=== PATIENT | female | born 1940 | race Hispanic/Latino ===

== ENCOUNTER 2017-02-17 16:07 | Inpatient (IN) | payer MEDICARE, BC ==
[2017-02-17 16:18] VITALS: BMI 38.9
[2017-02-17] MEDS ORDERED: Pantoprazole 80 MG in Sodium Chloride 0.9% 100 ML IV STA (16:36)
[2017-02-17 17:05] LABS: ADD MANUAL DIFF? NO
[2017-02-17 17:09] LABS: BASO # 0.02 K/mm3 (0.0-2.0); BASO % 0.3 % (0.0-3.0); EOS # 0.1 (0.0-0.7); EOS % 1.6 % (1.5-5.0); GRAN # 5.53 (1.4-6.5); GRAN % 71.7 % (50.0-68.0); HEMATOCRIT 31.1 % (36.0-48.0); LYMPH # 1.4 (1.2-3.4); LYMPH % 18.6 % (22.0-35.0); MEAN CORPUSCULAR HEMOGLOBIN 29.3 pg (25.0-35.0); MEAN CORPUSCULAR HGB CONC 31.8 g/dl (31.0-37.0); MEAN PLATELET VOLUME 10.3 fl (7.0-11.0); MONO # 0.6 (0.1-0.6); MONO % 7.8 % (1.0-6.0); PLATELET COUNT 304 10^3/uL (120.0-450.0); RED CELL DISTRIBUTION WIDTH 14.3 % (11.5-14.5); WHITE BLOOD COUNT 7.7 10^3/ul (4.5-11.0)
--- NOTE | 2017-02-17 17:16 | ED PDOC ---
Arrival/HPI - General Chief Complaint: Abnormal Labs Time Seen by Provider: 02/17/17 16:17 Historian: Patient - History of Present Illness Narrative History of Present Illness (Text): 02/17/17 17:13 77 year old female whose past medical history includes atrial fibrillation, diabetes, hypertension, hypercholeterolemia, GI bleed, and anemia sent by GI Dr. Gleason for low hemoglobin. Patient was admitted in december for GI bleed and followed up with Dr. Gleason. Patient had bloodwork done 1 week ago, which showed hemoglobin of 7. Dr. Gleason called to the ER for handoff stating that at his office today patient had shortness of breathe and was noted to have a low blood pressure. Patient reports intermittent shortness of breath and intermittent lightheadedness/dizziness. PMD: Dr. Roy Time/Duration: > week Symptom Onset: Gradual Symptom Course: Intermittent Modifying Factors (Text): None Associated Symptoms (Text): None Past Medical History - Provider Review Nursing Documentation Reviewed: Yes - Cardiac Hx Hypertension: Yes Other/Comment: cardiac stent - Endocrine/Metabolic Hx Diabetes Mellitus Type 2: Yes - Hematological/Oncological Hx Cancer: Yes (cervical and vulva) - Genitourinary/Gynecological Hx Cervical Cancer: Yes - Psychiatric Hx Substance Use: No - Surgical History Hx Cataract Extraction: Yes Hx Coronary Stent: Yes Hx Hysterectomy: Yes Family/Social History - Physician Review Nursing Documentation Reviewed: Yes Family/Social History: Unknown Family HX Smoking Status: Unknown If Ever Smoked Hx Alcohol Use: No Hx Substance Use: No Allergies/Home Meds Allergies/Adverse Reactions: Allergies No Known Allergies Allergy (Unverified 02/17/17 16:36) Review of Systems - Physician Review All systems were reviewed & negative as marked: Yes - Review of Systems Respiratory: SOB (intermittent) Cardiovascular: absent: Chest Pain Gastrointestinal: absent: Abdominal Pain Neurological: Dizziness (intermittent) Physical Exam Vital Signs Reviewed: Yes Vital Signs Temp Pulse Resp BP Pulse Ox 02/17/17 18:05 73 18 106/77 96 02/17/17 16:17 98.0 F 93 H 18 118/45 L 96 Temperature: Afebrile Blood Pressure: Normal Pulse: Regular Respiratory Rate: Normal Appearance: Positive for: Well-Appearing, Non-Toxic, Comfortable Pain Distress: None Mental Status: Positive for: Alert and Oriented X 3 - Systems Exam Head: Present: Atraumatic, Normocephalic Pupils: Present: PERRL Extroacular Muscles: Present: EOMI Conjunctiva: Present: Other (Pale conjunctiva) Mouth: Present: Moist Mucous Membranes Neck: Present: Normal Range of Motion Respiratory/Chest: Present: Clear to Auscultation, Good Air Exchange. No: Respiratory Distress, Accessory Muscle Use Cardiovascular: Present: Regular Rate and Rhythm, Normal S1, S2. No: Murmurs Abdomen: Present: Normal Bowel Sounds. No: Tenderness, Distention, Peritoneal Signs Back: Present: Normal Inspection Upper Extremity: Present: Normal Inspection. No: Cyanosis, Edema Lower Extremity: Present: Edema (Trace) Neurological: Present: GCS=15, CN II-XII Intact, Speech Normal Skin: Present: Warm, Dry, Pale. No: Rashes Psychiatric: Present: Alert, Oriented x 3, Normal Insight, Normal Concentration Medical Decision Making ED Course and Treatment: Impression: 77 year old female whose past medical history includes atrial fibrillation, diabetes, hypertension, hypercholeterolemia, GI bleed, and anemia sent by GI Dr. Gleason for low hemoglobin. Differential Diagnosis included but are not limited to: Shortness of Breathe, Near Syncope r/o Anemia secondary to GI bleed Plan: -- EKG, Chest X-ray -- Protonix -- Labs -- Reassess and disposition Progress Notes: 02/17/17 18:10 Patient said she had rectal bleeding 2 weeks ago and not today. She'd rather not do the rectal exam for guaic test. I explained to her the importance and she still did not want it. PMD is Dr. Roy who admits to the hospitalist. I discussed case with Dr. Murillo who agreed to telemetry observation secondary to hypotensive episode and near syncope with gi bleed. - Lab Interpretations Lab Results: 02/17/17 17:04 02/17/17 17:04 Lab Results 02/17/17 17:04: Sodium 136, Potassium 4.6, Chloride 107, Carbon Dioxide 19 L, Anion Gap 15, BUN 14, Creatinine 1.2, Est GFR ( Amer) 53, Est GFR (Non- Af Amer) 43, Random Glucose 122 H, Calcium 9.1, Total Bilirubin 0.5, AST 22, ALT 35, Alkaline Phosphatase 50, Lactate Dehydrogenase 429, Total Creatine Kinase 56, Troponin I < 0.01, Total Protein 6.4, Albumin 3.3, Globulin 3.1, Albumin/Globulin Ratio 1.1, Amylase 46, Lipase 30 02/17/17 17:04: WBC 7.7, RBC 3.38 L, Hgb 9.9 L, Hct 31.1 L, MCV 92.0, MCH 29.3, MCHC 31.8, RDW 14.3, Plt Count 304, MPV 10.3, Gran % 71.7 H, Lymph % (Auto) 18.6 L, [place] % (Auto) 7.8 H, Eos % (Auto) 1.6, Baso % (Auto) 0.3, Gran # 5.53, Lymph # 1.4, [place] # 0.6, Eos # 0.1, Baso # 0.02 02/17/17 16:55: Blood Type Pending, Antibody Screen Pending, BBK History Checked No verified bt Interpretation: Abnormal lab values (low hgb) - RAD Interpretation Radiology Orders: 02/17/17 16:36 CHEST PORTABLE [RAD] Stat - EKG Interpretation EKG Interpretation (Text): EKG shows atrial fibrillation at 93 BPM, otherwise normal, with no prior for comparison. Interpreted by me. Interpreted by ED Physician: Yes Type: 12 lead EKG - Medication Orders Current Medication Orders: Pantoprazole Sodium (Protonix 40mg Ivpb) 40 mg in 100 mls @ 20 mls/hr IVPB .Q5H COMPA Stop: 02/18/17 02:59 - Scribe Statement The provider has reviewed the documentation as recorded by the John Villalta Provider Scribe Attestation: All medical record entries made by the John were at my direction and personally dictated by me. I have reviewed the chart and agree that the record accurately reflects my personal performance of the history, physical exam, medical decision making, and the department course for this patient. I have also personally directed, reviewed, and agree with the discharge instructions and disposition. Disposition/Present on Arrival - Present on Arrival Any Indicators Present on Arrival: No History of DVT/PE: No History of Uncontrolled Diabetes: No Urinary Catheter: No History of Decub. Ulcer: No History Surgical Site Infection Following: None - Disposition Have Diagnosis and Disposition been Completed?: Yes Diagnosis: Near syncope, Shortness of breath, GI bleed Disposition Time: 18:12 Patient Plan: Observation Condition: FAIR Referrals: Santosh Roy MD [Primary Care Provider] - Follow up with primary
[2017-02-17 17:19] LABS: ALB/GLOB RATIO 1.1 (1.1-1.8); ALKALINE PHOSPHATASE 50 U/L (38-133); ALT/SGPT 35 U/L (7-56); AMYLASE 46 U/L (35-125); AST/SGOT 22 U/L (15-39); BILIRUBIN,TOTAL 0.5 mg/dL (0.2-1.3); BLOOD UREA NITROGEN 14 mg/dL (7-21); CALCIUM 9.1 mg/dL (8.4-10.5); CARBON DIOXIDE 19 mmol/L (21-33); CHLORIDE 107 mmol/L (98-107); GFR AFRICAN-AMERICAN 53; GLUCOSE,RANDOM 122 mg/dL (70-110); LIPASE 30 U/L (23-300); POTASSIUM 4.6 mmol/L (3.6-5.0); SODIUM 136 mmol/L (132-148); TOTAL PROTEIN 6.4 g/dL (5.8-8.3)
[2017-02-17] MEDS: PANTOPRAZOLE IVPB SCH ×2 (17:30→23:24)
--- NOTE | 2017-02-17 17:35 | RAD ---
HISTORY: Shortness of breath. Semi upright study 17:04. COMPARISON: Catheterization set FINDINGS: LUNGS: No active pulmonary disease. PLEURA: No significant pleural effusion identified, no pneumothorax apparent. CARDIOVASCULAR: No radiographic findings to suggest acute or significant cardiovascular disease. OSSEOUS STRUCTURES: No significant abnormalities. VISUALIZED UPPER ABDOMEN: Normal. OTHER FINDINGS: None. IMPRESSION: No active disease.
[2017-02-17 17:41] LABS: TROPONIN I < 0.01 ng/mL
[2017-02-17 19:00] LABS: INR 1.26 (0.93-1.08); PARTIAL THROMBOPLASTIN TIME 37.3 Seconds (23.7-30.8)
--- NOTE | 2017-02-17 21:37 | CARD ---
APPROVED REPORT EKG Measurement Heart [id number] <Conclusion> Sinus rhythm with frequent APCs. some are nonconducted Low voltage QRS Incomplete right bundle branch block Abnormal ECG
[2017-02-18 06:56] LABS: URINE BILIRUBIN NEGATIVE (NEGATIVE); URINE BLOOD NEGATIVE (NEGATIVE); URINE GLUCOSE (UA) NEGATIVE (NEGATIVE); URINE KETONE NEGATIVE (NEGATIVE); URINE LEUKOCYTE ESTERASE SMALL Leu/uL (NEGATIVE); URINE PROTEIN NEGATIVE mg/dL (<30 mg/dL); URINE UROBILINOGEN 0.2 E.U./dL (<1 E.U./dL)
[2017-02-18 06:59] LABS: URINE APPEARANCE SL CLOUDY (CLEAR); URINE COLOR YELLOW (YELLOW)
[2017-02-18 07:29] LABS: URINE BACTERIA FEW (NEG); URINE RBC NEGATIVE /hpf (0-2)
[2017-02-18 09:22] LABS: ADD MANUAL DIFF? NO
[2017-02-18 09:32] LABS: BASO # 0.01 K/mm3 (0.0-2.0); BASO % 0.1 % (0.0-3.0); EOS # 0.4 (0.0-0.7); EOS % 4.6 % (1.5-5.0); GRAN % 59.4 % (50.0-68.0); HEMATOCRIT 24.9 % (36.0-48.0); LYMPH # 2.2 (1.2-3.4); LYMPH % 28.8 % (22.0-35.0); MEAN CELL VOLUME 90.2 fL (80.0-105.0); MEAN CORPUSCULAR HEMOGLOBIN 27.5 pg (25.0-35.0); MEAN CORPUSCULAR HGB CONC 30.5 g/dl (31.0-37.0); MEAN PLATELET VOLUME 9.6 fl (7.0-11.0); MONO # 0.6 (0.1-0.6); MONO % 7.1 % (1.0-6.0); PLATELET COUNT 437 10^3/uL (120.0-450.0); RED CELL DISTRIBUTION WIDTH 15.1 % (11.5-14.5); WHITE BLOOD COUNT 7.8 10^3/ul (4.5-11.0)
[2017-02-18 09:35] LABS: ALB/GLOB RATIO 1.1 (1.1-1.8); BILIRUBIN,TOTAL 0.5 mg/dL (0.2-1.3); POTASSIUM 4.5 mmol/L (3.6-5.0); TOTAL PROTEIN 6.5 g/dL (5.8-8.3)
[2017-02-18] MEDS: Albuterol-Ipratrop 3 mg / 0.5 (3 ml) UD IH SCH ×2 (11:18→19:44)
--- NOTE | 2017-02-18 11:31 | HP ---
HISTORY OF PRESENT ILLNESS: The patient is a 77-year-old woman with a past medical history of hypertension, hyperlipidemia, CAD s/p PCI with stent placement and atrial fibrillation (on Pradaxa) who presented to [facility] Emergency Department from her hogshead roller's office (Dr. Gleason) for evaluation of a 2-week history of malaise, lethargy and intermittent dizziness. The patient states that in December 2016 she developed a gradual onset of diarrhea which she described as multiple episodes of loose stools per day. She sought medical attention with her primary care physician (Dr. Roy) and reportedly laboratory studies demonstrated anemia with a hemoglobin of 7. The patient was advised to follow up with the airfield manager and a hogshead roller and was also prescribed Feosol 325 mg p.o. t.i.d. to which she was noncompliant. After her initial evaluation with Dr. Gleason the patient was advised on dietary changes but reported no improvement in her diarrhea initially however by the time of her follow-up with Dr. Gleason she reported decreased frequency of stools and stated that her stools were also more formed in nature. At her visit with Dr. Gleason, however, she was noted to be hypotensive in the office and, as such, was advised to present to the Emergency Department for further evaluation. Upon arrival to the ED, she was noted to be afebrile and hemodynamically stable, and routine laboratory studies demonstrated a hemoglobin of 9.9. Given her history of GI bleed and duration of symptoms, the patient was admitted to the telemetry [place] for observation and for continued management. This morning, the patient states she feels okay and denies any complaints. PAST MEDICAL HISTORY: As per HPI. Also COPD, hypothyroidism, type 2 diabetes mellitus and cervical cancer. PAST SURGICAL HISTORY: As per HPI. Also history of hysterectomy secondary to cervical cancer and bilateral cataract removal. ALLERGIES: No known drug allergies. MEDICATIONS: Stiolto 2 mcg inhaled daily, Xanax 0.25 mg p.o. b.i.d., aspirin 81 mg p.o. daily, Pradaxa 150 mg p.o. b.i.d., Benazepril 40 mg p.o. daily, Trulicity 1.5 mg subcutaneous weekly, diltiazem 30 mg p.o. t.i.d., ergocalciferol 50,000 units p.o. q. weekly, Pepcid 40 mg p.o. daily, Synthroid 25 mcg p.o. daily, Feosol 325 mg p.o. t.i.d., simvastatin 20 mg p.o. daily, metformin 500 mg p.o. b.i.d., Ventolin HFA 2 puffs q. 4-6 hours p.r.n. dyspnea or wheeze. FAMILY HISTORY: Significant for hypertension and laryngeal cancer in her father , and diabetes, emphysema, and history of NC in her mother. SOCIAL HISTORY: The patient reports social alcohol use and a former 55-pack- year smoking history but quit 5 years ago. She denies illicit drug abuse. REVIEW OF SYSTEMS: A 14 point review of systems is negative except as per HPI. PHYSICAL EXAMINATION: VITAL SIGNS: Temperature 97.4, pulse 74, blood pressure 108/49, respiratory rate 20, oxygen saturation 98% on room air. GENERAL: No apparent distress. HEENT: PERRL, EOMI, no scleral icterus. Mild conjunctival pallor is noted. NECK: No JVD, no bruits. LUNGS: Clear to auscultation. CARDIOVASCULAR: Irregularly irregular. Normal S1 and S2. No murmurs. ABDOMEN: Normoactive bowel sounds, soft, nontender, nondistended. EXTREMITIES: No edema. NEUROLOGIC: Awake, alert and oriented x 3. No focal motor deficits. LABORATORY DATA: Laboratory studies on admission demonstrated WBC of 7.7 with 72% neutrophils, hemoglobin 9.9, hematocrit 31, platelets 304. Chemistry is unremarkable. Laboratory studies from this morning are pending. IMAGING STUDIES: Chest x-ray demonstrates no active disease. ASSESSMENT: The patient is a 77-year-old woman with multiple medical comorbidities including history of atrial fibrillation (on Pradaxa) and history of gastrointestinal bleed who presented to [facility] Emergency Department from her hogshead roller's office for evaluation of a 2-week history of loose stools and malaise, and who was admitted for continued management of symptomatic anemia. PLAN: 1. Iron deficiency anemia, symptomatic. Laboratory studies on admission demonstrate a hemoglobin of 9.9 however the repeat morning labs demonstrated a hemoglobin of 7.6. Will transfuse 2 units of PRBCs. Will resume Feosol [address] Gleason of gastroenterology has been consulted for further evaluation and for possible EGD versus colonoscopy for further evaluation of anemia. Continue to monitor CBC daily. 2. Atrial fibrillation. The patient remains rate controlled. Continue with diltiazem 30 mg p.o. t.i.d. Will hold aspirin and Pradaxa given patient's symptomatic anemia and concern for possible GI bleed. 3. Coronary artery disease status post percutaneous coronary intervention with stent placement. As above, will hold aspirin given concern for possible GI bleed. The patient is on simvastatin on an outpatient basis; however, this is not on formulary, thus will start Lipitor 20 mg p.o. daily. 4. Hypertension. The patient with borderline low blood pressure this morning. She is on Benazepril 40 mg p.o. daily at home; however, will hold antihypertensives given tenuous hemodynamics. Will continue to monitor blood pressure and resume home medications as tolerated. 5. Hypothyroidism. Continue with Synthroid 25 mcg p.o. daily. 6. Hyperlipidemia. Continue with Lipitor 20 mg p.o. daily. 7. Chronic obstructive pulmonary disease. Continue with DuoNeb q. 4-6 hours p.r.n. dyspnea or wheeze. 8. Type 2 diabetes mellitus. Continue with metformin 500 mg p.o. b.i.d. Continue to monitor fingersticks q.a.c. and at bedtime. 9. Prophylaxis. Continue with Protonix 40 mg IV daily for GI prophylaxis. DVT prophylaxis not indicated as the patient is ambulatory and also presented with possible gastrointestinal bleed. CODE STATUS: Full code. Flex Longo MD cc: [id number] TT: 02/18/2017 11:31:03 pallavi PIERSON
[2017-02-18] MEDS ORDERED: Propofol 10 mg/ml Inj (20 ML) ONE (11:35)
[2017-02-18] MEDS ORDERED: Phenylephrine 10 mg/ml Inj ONE (11:35)
[2017-02-18] MEDS ORDERED: ePHEDrine 50 mg/ml Inj ONE (11:36)
[2017-02-18] MEDS ORDERED: Albuterol HFA 90 mcg/actuation (8 g) ONE (12:13)
[2017-02-18 13:16] VITALS: O2SAT 100
[2017-02-18] MEDS ORDERED: Lactated Ringer's 1,000 ML IV SCH (13:16)
--- NOTE | 2017-02-18 13:54 | CON ---
DATE: 02/18/2017 REQUESTING PHYSICIAN: Dr. Flex Longo REASON FOR CONSULTATION: I have been asked to see this 77-year-old female with multiple comorbiditie s including coronary artery disease, status post coronary artery stent placement, recently diagnosed atrial fibrillation, diabetes mellitus, obesity, chronic obstructive pulmonary disease, hypothyroidis m, cervical cancer, who I sent to the hospital yesterday from my office for complaints of weakness an d dizziness. The patient had blood work approximately 1 week ago, which revealed a hemoglobin of 7.7 . This was markedly different from a CBC about 2-1/2 months ago, at which point her hemoglobin was 1 4. The patient complained of weakness, lightheadedness, dizziness and feeling faint. The patient al so had rectal bleeding intermittently several weeks ago, which resolved. The rectal bleeding was jolynn cribed as being intermittent. The patient also has had diarrhea in the past, which appeared to impro ve with dietary changes of a low fat, lactose free diet. The patient was also noted to be hypotensiv e in my office with a blood pressure of 90/70 and was deemed to be extremely pale and thus sent to [facility] Emergency Room. PAST MEDICAL HISTORY: As above. Again, she has a history of atrial fibrillation on Pradaxa, diabete s mellitus, COPD, hypothyroidism, cervical cancer. PAST SURGICAL HISTORY: Notable for hysterectomy. SOCIAL HISTORY: She denies recent cigarette use. She used to smoke for over 50 years, but quit 5 ye ars ago. She consumes alcohol on a social basis. FAMILY HISTORY: Noncontributory. REVIEW OF SYSTEMS: A 14-point is notable for diarrhea, rectal bleeding, lightheadedness, dizziness a nd generalized weakness. PHYSICAL EXAMINATION: GENERAL: Obese female, lying in bed, no acute distress. VITAL SIGNS: Reveal temperature of 98, blood pressure 113/55, heart rate of 88. HEENT: Revealed sclerae to be white, conjunctivae extremely pale. NECK: Supple. CHEST: Reveals lungs to be clear. HEART: Reveals an irregularly irregular rate. ABDOMEN: Obese, soft, nontender. EXTREMITIES: Show no edema. LABORATORY DATA: From this morning reveal hemoglobin down to 7.6, which is consistent with the hemog lobin from last week of 7.7. The hemoglobin of 9.9 from the Emergency Room, I feel was an error. emistries reveal blood sugar of 122. AST, ALT, alk phos were all normal. IMPRESSION: A 77-year-old female with coronary artery disease, status post coronary artery stent derrell cement years ago, atrial fibrillation on Pradaxa and aspirin, anemia, history of gastrointestinal ble ed over the last several weeks with a history of diarrhea, which has improved with dietary changes. RECOMMENDATIONS: 1. Transfuse packed red blood cells to hematocrit of 30%. 2. Will schedule the patient for an upper endoscopy this morning. 3. Continue PPI. Larry Gleason MD cc: [id number] TT: 02/18/2017 13:53:48 Confirmation # [id number] Dictation # [id number]
--- NOTE | 2017-02-18 17:25 | CP.PCM.PN ---
Subjective - Date & Time of Evaluation Date of Evaluation: 02/18/17 Time of Evaluation: 17:15 - Subjective Subjective: Code star note 77 year old female whose past medical history includes atrial fibrillation, diabetes, hypertension, hypercholesterolemia, GI bleed, and anemia, fell today while being assisted in toilet. Pt was in between 2 PRBC transfusions, got assisted to toilet, and after urination, adjusted position for stooling, and slipped and fell on long pant leg, and fell onto left hip. Pt denies pain. Vitals minutes afterwards fall is 92/48, 89 HR and 95% Osat. Objective - Vital Signs/Intake and Output Vital Signs (last 24 hours): Temp Pulse Resp BP Pulse Ox 97.9 F 76 20 90/60 L 100 02/18/17 13:40 02/18/17 14:49 02/18/17 13:40 02/18/17 14:49 02/18/17 13:40 Intake and Output: 02/18/17 02/18/17 06:59 18:59 Intake Total 580 665 Output Total 400 1 Balance 180 664 - Medications Medications: Current Medications Albuterol/Ipratropium (Duoneb 3 Mg/0.5 Mg (3 Ml) Ud) 3 ml IH [id number] [facility] Last Admin: 02/18/17 11:18 Dose: 3 ml Atorvastatin Calcium (Lipitor) 20 mg PO DIN [facility] Diltiazem HCl (Cardizem) 30 mg PO TID [facility] Last Admin: 02/18/17 14:49 Dose: 30 mg Ferrous Sulfate (Feosol) 324 mg PO TID [facility] Last Admin: 02/18/17 14:46 Dose: 324 mg Lactated Ringer's (Lactated Ringer's) 1,000 mls @ 75 mls/hr IV .[id number] [facility] Last Admin: 02/18/17 14:45 Dose: 75 mls/hr Levothyroxine Sodium (Synthroid) 25 mcg PO ACB [facility] Metformin HCl (Glucophage) 500 mg PO BID [facility] Last Admin: 02/18/17 12:35 Dose: Not Given Pantoprazole Sodium (Protonix Inj) 40 mg IVP DAILY [facility] Last Admin: 02/18/17 14:45 Dose: Not Given - Labs Labs: 02/18/17 09:15 02/18/17 09:15 PT 13.6 Seconds (9.9-11.8) H 02/17/17 18:44 INR 1.26 (0.93-1.08) H 02/17/17 18:44 APTT 37.3 Seconds (23.7-30.8) H 02/17/17 18:44 - Constitutional Appears: Non-toxic, No Acute Distress - Eye Exam Eye Exam: EOMI, Normal appearance - Respiratory Exam Respiratory Exam: Clear to Ausculation Bilateral, NORMAL BREATHING PATTERN - Cardiovascular Exam Cardiovascular Exam: +S1, +S2. absent: Bradycardia - GI/Abdominal Exam GI & Abdominal Exam: Soft. absent: Tenderness - Exam Additional comments: equal active range of motion of both lower extremities - Skin Skin Exam: Intact, Normal Color Assessment and Plan - Assessment and Plan (Free Text) Plan: 77 year old female whose past medical history includes atrial fibrillation, diabetes, hypertension, hypercholeterolemia, GI bleed, and anemia, slipped and fell on left hip from crouching position over toilet. Pt denies pain and vitals remain relatively unchanged from before fall. Vitals after fall: 92/48, 89 HR and 95% Osat. Last BP and HR before fall, 91/50, 72 HR. Physical exam has preserved active range of motion of b/l lower extremities. Plan: No action
[2017-02-18 18:31] LABS: FOLATE 9.2 ng/mL
[2017-02-18 20:29] VITALS: RESP 18
[2017-02-18 22:56] VITALS: TEMP 98.7
[2017-02-19] MEDS: Albuterol-Ipratrop 3 mg / 0.5 (3 ml) UD IH SCH ×4 (01:27→11:53)
[2017-02-19] MEDS ORDERED: Levothyroxine 25 MCG TAB PO SCH (07:30)
[2017-02-19 07:44] LABS: ADD MANUAL DIFF? NO
[2017-02-19 08:04] LABS: BASO # 0.01 K/mm3 (0.0-2.0); BASO % 0.1 % (0.0-3.0); EOS # 0.4 (0.0-0.7); EOS % 4.5 % (1.5-5.0); GRAN # 4.72 (1.4-6.5); HEMATOCRIT 27.8 % (36.0-48.0); LYMPH # 2.1 (1.2-3.4); LYMPH % 27.2 % (22.0-35.0); MEAN CELL VOLUME 87.1 fL (80.0-105.0); MEAN CORPUSCULAR HEMOGLOBIN 27.6 pg (25.0-35.0); MEAN CORPUSCULAR HGB CONC 31.7 g/dl (31.0-37.0); MEAN PLATELET VOLUME 9.7 fl (7.0-11.0); MONO # 0.6 (0.1-0.6); MONO % 7.2 % (1.0-6.0); PLATELET COUNT 356 10^3/uL (120.0-450.0); WHITE BLOOD COUNT 7.8 10^3/ul (4.5-11.0)
[2017-02-19 08:06] LABS: BILIRUBIN,TOTAL 0.6 mg/dL (0.2-1.3); CALCIUM 8.7 mg/dL (8.4-10.5); POTASSIUM 4.5 mmol/L (3.6-5.0); TOTAL PROTEIN 5.7 g/dL (5.8-8.3)
--- NOTE | 2017-02-19 08:43 | PN ---
DATE: 02/19/2017 SUBJECTIVE: The patient seen and examined at bedside on the telemetry [place]. No acute events overnight. She remains afebrile and hemodynamically stable. The patient is status post transfusion of 2 units of PRBCs secondary to presentation with symptomatic anemia with a hemoglobin of 7.6. This morning she states she feels well, offers no complaints and is looking forward to going home. Of note, the patient also underwent EGD yesterday, which demonstrated no active bleed and per my discussion with Dr. Gleason, if the patient's H and H is improved status post transfusion, she may be discharged to home with outpatient arrangements made for colonoscopy for further evaluation of her anemia, which is likely secondary to her Pradaxa. OBJECTIVE: VITAL SIGNS: Temperature 98.7, pulse 71, blood pressure 141/64, respiratory rate 18, oxygen saturation 98% on room air. GENERAL: No apparent distress. HEENT: PERRL, EOMI. No scleral icterus. Mild conjunctival pallor is noted. NECK: No JVD, no bruits. LUNGS: Clear to auscultation. CARDIOVASCULAR: Irregularly irregular. Normal S1 and S2, no murmurs. ABDOMEN: Normoactive bowel sounds, soft, nontender, nondistended. EXTREMITIES: No edema. NEUROLOGIC: Awake, alert and oriented x 3. No focal motor deficits. LABORATORY DATA: Morning labs are pending. ASSESSMENT: The patient is a 77-year-old woman with multiple medical comorbidities including atrial fibrillation (on Pradaxa) who presented to [facility] Emergency Department from her web ui software engineer's office for evaluation of a 2-week history of loose stools, malaise and lethargy and who was admitted for management of symptomatic anemia. PLAN: 1. Iron deficiency anemia, symptomatic. The patient is status post transfusion of 2 units PRBCs with improvement in her H/H. She is also s/p EGD with Dr. Gleason which demonstrated no active bleed. Arrangements will be made for outpatient colonoscopy with Dr. Gleason. 2. Atrial fibrillation. The patient remains rate controlled. Continue with diltiazem 30 mg p.o. t.i.d. The patient was advised to discontinue Pradaxa given concern for GI bleed on presentation with symptomatic anemia. Given her CHADS2 VASc score she will require some form of anticoagulation/antiplatelet therapy thus the patient was advised to continue with aspirin 81 mg p.o. daily as monotherapy pending reevaluation with her technical coordinator. 3. Coronary artery disease. Status post percutaneous coronary intervention with stent placement. Continue with Lipitor 20 mg p.o. daily and aspirin 81 mg p.o. daily. 4. Hypertension. Blood pressure controlled. Will continue to monitor hemodynamics and resume home antihypertensives as needed. 5. Hypothyroidism. Continue with Synthroid 25 mcg p.o. daily. 6. Hyperlipidemia. Continue with Lipitor 20 mg p.o. daily. 7. Chronic obstructive pulmonary disease. Continue with DuoNeb q. 4 - 6 hours p.r.n. dyspnea or wheeze. 8. Type 2 diabetes mellitus. Continue with metformin 500 mg p.o. b.i.d. and monitoring fingersticks q.a.c. and at bedtime. 9. Prophylaxis. Continue with Protonix for GI prophylaxis. DVT prophylaxis not indicated as patient is ambulatory. 10. Disposition. The patient is scheduled for discharged to home. CODE STATUS: Full code. Flex Longo MD cc: [id number] TT: 02/19/2017 08:42:22 Confirmation # [id number] Dictation # [id number] MTDD
[2017-02-19 10:16] VITALS: BP 100/50; PULSE 83
--- NOTE | 2017-02-21 15:46 | DS ---
ADMITTING DIAGNOSIS: Symptomatic iron deficiency anemia. DISCHARGE DIAGNOSIS: Symptomatic iron deficiency anemia secondary to lower gastrointestinal bleed. SECONDARY DIAGNOSES: Atrial fibrillation, coronary artery disease status post percutaneous coronary intervention with stent placement, hypertension, hypothyroidism, hyperlipidemia, chronic obstructive pulmonary disease, type 2 diabetes mellitus. CONSULTATIONS: Dr. Gleason (gastroenterology). IMAGING STUDIES: Chest x-ray which demonstrated no acute pathology. PROCEDURES: 1. EGD, which demonstrated mild gastritis with no active bleed. 2. Transfusion of 2 units of PRBCs. HISTORY OF PRESENT ILLNESS: The patient is a 77-year-old woman with past medical history of hypertension, hyperlipidemia, CAD status post PCI with stent placement and atrial fibrillation (on Pradaxa), who presented to [facility] Emergency Department from her drafter apprentice's office (Dr. Gleason) for evaluation of a 2-week history of malaise, lethargy and intermittent dizziness. The patient states that in 12/2016, she developed a gradual onset of diarrhea, which she described as multiple episodes of loose stools per day. She sought medical attention with her primary care physician (Dr. Roy) and reportedly, laboratory studies demonstrated anemia with a hemoglobin of 7. She was advised to follow up with a bunch maker and drafter apprentice and was also prescribed Feosol 325 mg p.o. t.i.d., to which she was noncompliant. After her initial evaluation with Dr. Gleason, she was advised on dietary changes, but reported no improvement in her diarrhea initially. However, by the time of her followup visit with Dr. Gleason, she reported decreased frequency of stools and stated that her stools were also becoming more formed in nature. At her followup visit with Dr. Gleason, however, she was noted to be hypotensive in the office and as such was advised to present to the Emergency Department for further evaluation. Upon arrival to the ED, she was noted to be afebrile and hemodynamically stable and initial laboratory studies demonstrated a hemoglobin of 9.9. Given her history of GI bleed and the duration of symptoms, she was admitted to the telemetry [place] for observation and continued management. HOSPITAL COURSE: The following morning, the patient was noted to have an acute drop in hemoglobin from 9.9 on admission to 7.6. The patient underwent successful transfusion of 2 units of PRBCs with near resolution of her symptoms. She also underwent successful EGD with Dr. Gleason, which demonstrated no evidence of active bleed. Given the improvement in her hemoglobin status post transfusion and no evidence of active bleed, the patient was advised that she may be discharged to home and arrangements to be made for outpatient colonoscopy for further evaluation of her presentation with symptomatic anemia. She was also advised that the etiology is likely secondary to her Pradaxa use and despite her CHADS2-VASc score, she was advised to discontinue Pradaxa and remain on aspirin 81 mg p.o. daily as monotherapy pending reevaluation with her balling head tender. By hospital day #2, the patient stated that she felt well and was able to ambulate around the medical [place] with no further symptoms of lightheadedness or dizziness and at this point in time, she was deemed stable for discharge to home. CONDITION: Good, improved. DISPOSITION: To home. DISCHARGE INSTRUCTIONS: The patient was again advised to discontinue Pradaxa and only remain on aspirin 81 mg p.o. daily. She was also advised that if she has any recurrence of her symptoms or any development of blood per rectum or melena, to present to her PMD or to the nearest Emergency Department immediately. DISCHARGE MEDICATIONS: Stiolto 2 mcg inhaled daily, Ventolin HFA 2 puffs q. 4- 6 hours p.r.n. dyspnea/wheeze, Xanax 0.25 mg p.o. b.i.d., aspirin 81 mg p.o. daily, benazepril 40 mg p.o. daily, diltiazem 30 mg p.o. t.i.d., Trulicity 1.5 mg subQ weekly, metformin 500 mg p.o. b.i.d., ergocalciferol 50,000 units p.o. q. weekly, Pepcid 40 mg p.o. daily, Feosol 325 mg p.o. t.i.d., simvastatin 20 mg p.o. daily. FOLLOWUP: The patient to follow up with her PMD within 1 week of discharge. The patient to follow up with Dr. Gleason as scheduled to pursue outpatient colonoscopy. Flex Longo MD cc: [id number] TT: 02/21/2017 15:45:52 en DANGELO
--- NOTE | 2017-03-18 15:59 | PQF ANEMIA ---
This form is a permanent part of the medical record DR. LYN, Please verify the type and acuity of the patient's anemia. Pt had an acute drop in Hbg from 9.9 to 7.6. She was transfused 2 units of PRBC's . Clarification of your documentation is requested to better reflect the severity of illness and intensity of treatment of your patient. Indicators present [X] Anemia [] Drop in H&H from []___ to []___ [] Hypotension [X] GI Bleed [X] Transfusion(s) [] Acute bleed other sites [] Tachycardia [] Surgical Procedure Blood Loss (expected not a complication) Other:[] Location in the medical record that reflects the above clinical findings: [] Treatment Provided: [] PHYSICIAN'S RESPONSE Based on your medical judgment of the clinical indicators outlined above, are you treating this patient for a known or suspected: [X] Acute blood loss anemia [] Chronic blood loss anemia [] Acute on Chronic blood loss anemia [] Anemia due to malignancy [] Anemia due to chemotherapy or radiation therapy [] Anemia of Chronic Disease, please specify: [] [] Other, please indicate type of anemia []____ [] If Unable to Determine, please check the box, sign and date. Present On Admission (POA) Indicator: [] Present at the time of admission [] Not present at the time of admission [] Clinically Undetermined In responding to this query, please exercise your independent professional judgment. The fact that a question is asked does not imply that any particular answer is desired or expected. Thank you for your clarification on this documentation. If you have any questions please call:[ ] * Thank you, [X ] [facility] Inpatient Skidder Runner DANGELO
== END 2017-02-19 13:36 | disposition home or self-care (01) | DRG 378 ==
LOC: ED 16:07 → ERH 18:43 → MERGE 18:43 → ERH 21:22 → 2RNO 22:37
PROVIDERS: ADMIT Student in an Organized Health Care Education/Training Program; ATTEND Student in an Organized Health Care Education/Training Program
PROC: 0DJ08ZZ Inspection of Upper Intestinal Tract, Via Natural or Artificial Opening Endoscopic (ICD-10-PCS; 2017-02-18)
PROC: 30233N1 Transfusion of Nonautologous Red Blood Cells into Peripheral Vein, Percutaneous Approach (ICD-10-PCS; principal; 2017-02-18 13:00)
DX: K92.2 Gastrointestinal hemorrhage, unspecified (principal); D62 Acute posthemorrhagic anemia; I48.91 Unspecified atrial fibrillation; J44.9 Chronic obstructive pulmonary disease, unspecified; I10 Essential (primary) hypertension; E11.9 Type 2 diabetes mellitus without complications; I25.10 Atherosclerotic heart disease of native coronary artery without angina pectoris; E78.5 Hyperlipidemia, unspecified; E03.9 Hypothyroidism, unspecified; E66.9 Obesity, unspecified; K31.84 Gastroparesis; K44.9 Diaphragmatic hernia without obstruction or gangrene; K29.70 Gastritis, unspecified, without bleeding; E78.00 Pure hypercholesterolemia, unspecified; Z91.14 Patient's other noncompliance with medication regimen; Z85.41 Personal history of malignant neoplasm of cervix uteri; Z90.710 Acquired absence of both cervix and uterus; Z95.5 Presence of coronary angioplasty implant and graft; Z87.891 Personal history of nicotine dependence; Z82.5 Family history of asthma and other chronic lower respiratory diseases; Z82.49 Family history of ischemic heart disease and other diseases of the circulatory system; Z83.3 Family history of diabetes mellitus; Z80.2 Family history of malignant neoplasm of other respiratory and intrathoracic organs

== ENCOUNTER 2017-03-31 06:44 | Day surgery (SDC) | payer MEDICARE, BC ==
[2017-03-31 07:50] VITALS: BMI 36.9
[2017-03-31] MEDS ORDERED: Propofol 10 mg/ml Inj (20 ML) ONE ×3 (08:05→08:39)
[2017-03-31] MEDS ORDERED: Lactated Ringer's 1,000 ML IV SCH (09:08)
[2017-03-31 09:18] VITALS: RESP 14
--- NOTE | 2017-03-31 09:20 | RAD ---
PROCEDURE: Portable abdomen HISTORY: SCOPE LOCATION COMPARISON: TECHNIQUE: A single portable film was obtained in the endoscopy suite. FINDINGS: The endoscope is seen in the left upper quadrant in the region of the splenic flexure IMPRESSION: As above
[2017-03-31 10:13] VITALS: BP 138/59; PULSE 55; TEMP 98.1; O2SAT 99
--- NOTE | 2017-03-31 22:52 | CARD ---
APPROVED REPORT EKG Measurement Heart [id number] <Conclusion> Sinus rhythm with premature atrial complexes with aberrant conduction Right bundle branch block Abnormal ECG
== END 2017-03-31 10:46 | disposition home or self-care (01) ==
LOC: ENDO 06:44
PROVIDERS: ATTEND Specialist
DX: K56.69 Other intestinal obstruction (principal); K57.30 Diverticulosis of large intestine without perforation or abscess without bleeding; D50.9 Iron deficiency anemia, unspecified
CPT/HCPCS: 45380; 45381; 74000; 82948; 88305; 93005; J2704; J7040; J7120